=== PATIENT | male | born 1965 | race Caucasian/White ===

== ENCOUNTER 2017-04-02 12:29 | Emergency (ER) | payer OTHER ==
[~2017-04-02] VITALS: Ht 177.8 cm; Wt 100.0 kg
[~2017-04-02 12:29] MED LIST: D-ME118S13 PO; GEMF600T3 PO; MONT10TA21 PO; OMEP20 PO; PRED10 PO; RANI150T7 PO
[2017-04-02] MEDS ORDERED: PERTUSS(ACELL),DIPH,TET VAC/PF 0.5 ML VIAL IM ONE (14:45)
[2017-04-02] MEDS ORDERED: IBUPROFEN 800 MG TABLET PO ONE (14:45)
[2017-04-02] MEDS ORDERED: BACITRACIN 0.9 GM PACKET OINTMENT TP ONE (14:45)
[2017-04-02 15:01] VITALS: BP 150/82
== END 2017-04-02 15:18 | disposition home or self-care (01) ==
LOC: EMS 12:33
DX: S01.511A Laceration without foreign body of lip, initial encounter (principal); R03.0 Elevated blood-pressure reading, without diagnosis of hypertension; E78.00 Pure hypercholesterolemia, unspecified; W45.8XXA Other foreign body or object entering through skin, initial encounter; Y93.89 Activity, other specified; Y92.89 Other specified places as the place of occurrence of the external cause; Y99.8 Other external cause status
CPT/HCPCS: 90471; 90715; 99283